=== PATIENT | male | born 1955 | race Hispanic/Latino ===

== ENCOUNTER 2017-10-30 18:53 | Emergency (ER) | payer SELFPAY ==
[2017-10-30] MEDS ORDERED: AMLODIPINE5 MG PO (19:41)
[2017-10-30 21:03] VITALS: BP 180/110
== END 2017-10-30 21:00 | disposition home or self-care (01) | DRG 950 ==
LOC: ED 18:53
DX: S01.81XD Laceration without foreign body of other part of head, subsequent encounter (principal); I16.0 Hypertensive urgency

== ENCOUNTER 2020-06-30 10:18 | Emergency (ER) | payer SELFPAY ==
[~2020-06-30] VITALS: Ht 167.6 cm; Wt 77.0 kg
[~2020-06-30 10:18] MED LIST: AMLODIPINE5 MG PO
[2020-06-30 11:27] LABS: URINE BILIRUBIN - DIPSTICK NEGATIVE (NEGATIVE); URINE BLOOD DIPSTICK TRACE-LYSED (NEGATIVE); URINE GLUCOSE - DIPSTICK NEGATIVE (NEGATIVE); URINE KETONE NEGATIVE (NEGATIVE); URINE LEUK ESTERASE NEGATIVE (NEGATIVE); URINE NITRITE - DIPSTICK NEGATIVE (Negative); URINE PH 6.5 (4.5-8.0); URINE PROTEIN - DIPSTICK NEGATIVE (NEG-TRACE)
[2020-06-30 11:30] LABS: URINE COLOR DK. YELLOW
[2020-06-30 11:31] LABS: HEMATOCRIT 32.7 % (39.0-50.0); HEMOGLOBIN 10.6 g/dl (14.0-18.0); IMMATURE GRANULOCYTES 0.5 % (0.0-5.0); MEAN CELL VOLUME 100.3 fL CALC (80.0-100.0); MEAN CORPUSCULAR HGB 32.5 pG CALC (26.0-32.0); MEAN CORPUSCULAR HGB CONC 32.4 g/dL CAL (32.0-36.0); NEUT# 1.95 thou/uL (1.82-7.42); RED BLOOD COUNT 3.26 mill/uL (4.70-6.10); RED CELL DISTRI WIDTH 17.4 % (11.5-15.5)
[2020-06-30 11:43] LABS: INTERNATIONAL NORMALIZED RATIO 1.5 RATIO (0.7-1.3); PROTHROMBIN TIME 14.9 SECONDS (9.0-12.5)
[2020-06-30 11:46] LABS: ALBUMIN 2.7 g/dL (3.2-5.0); ALKALINE PHOSPHATASE 186 u/l (38-126); ANION GAP 11 (6-22 (CALC)); BILIRUBIN, TOTAL 2.6 mg/dL (0.0-1.4); BUN 3 mg/dL (8-23); BUN/CREATININE RATIO 5 (12-20 (CALC)); CARBON DIOXIDE 22 mmol/l (22-30); CHLORIDE 108 mmol/l (95-108); CREATININE 0.6 mg/dL (0.7-1.3); GFR > 60 ML/MIN (>=60 (CALC)); GFR FOR AFR.AMER. > 60 ML/MIN (>=60 (CALC)); LIPASE 89 u/l (23-300); POTASSIUM 3.6 mmol/l (3.5-5.1); SGOT/AST 66 u/l (19-48); SODIUM 137 mmol/l (137-146)
[2020-06-30 14:40] VITALS: BP 156/82
== END 2020-06-30 14:43 | disposition home or self-care (01) | DRG 948 ==
LOC: ED 10:18
PROVIDERS: Family Medicine
PROC: 0W9G3ZZ Drainage of Peritoneal Cavity, Percutaneous Approach (ICD-10-PCS; principal; 2020-06-30)
DX: R18.8 Other ascites (principal); F10.10 Alcohol abuse, uncomplicated

== ENCOUNTER 2020-07-08 17:53 | Observation (INO) | payer SELFPAY ==
[~2020-07-08] VITALS: Ht 167.6 cm; Wt 80.0 kg
--- NOTE | 2020-07-08 18:00 | NUR ---
PT AMB TO ROOM IN NO DISTRESS
[2020-07-08 19:04] LABS: URINE BLOOD DIPSTICK TRACE-INTACT (NEGATIVE); URINE GLUCOSE - DIPSTICK NEGATIVE (NEGATIVE); URINE KETONE TRACE mg/dL (NEGATIVE); URINE LEUK ESTERASE NEGATIVE (NEGATIVE); URINE NITRITE - DIPSTICK NEGATIVE (Negative); URINE PH 6.5 (4.5-8.0); URINE PROTEIN - DIPSTICK NEGATIVE (NEG-TRACE)
[2020-07-08 19:04] LABS: HEMATOCRIT 30.1 % (39.0-50.0); HEMOGLOBIN 9.6 g/dl (14.0-18.0); IMMATURE GRANULOCYTES 0.3 % (0.0-5.0); MEAN CELL VOLUME 101.7 fL CALC (80.0-100.0); MEAN CORPUSCULAR HGB 32.4 pG CALC (26.0-32.0); MEAN CORPUSCULAR HGB CONC 31.9 g/dL CAL (32.0-36.0); NEUT# 1.6 thou/uL (1.82-7.42); RED BLOOD COUNT 2.96 mill/uL (4.70-6.10); RED CELL DISTRI WIDTH 17.2 % (11.5-15.5)
--- NOTE | 2020-07-08 19:04 | NUR ---
RECEIVED HAND OFF REPORT FROM LIN, PATIENT AWWAKE AND ALERT, NO C/O PAIN OR DISCOMFORT AT THIS TIME, RESTING QUIETLY, RESPIRATIONS EVEN AND UNLABORED, FAMILY AT BEDSIDE, AWAITING DIAGNOSTIC RESULTS.
[2020-07-08 19:05] LABS: URINE COLOR DK. YELLOW
[2020-07-08 19:06] LABS: URINE BILIRUBIN - DIPSTICK TRACE (NEGATIVE)
[2020-07-08 19:22] LABS: INTERNATIONAL NORMALIZED RATIO 1.5 RATIO (0.7-1.3); PROTHROMBIN TIME 14.8 SECONDS (9.0-12.5)
[2020-07-08 19:23] LABS: ALBUMIN 2.4 g/dL (3.2-5.0); ALKALINE PHOSPHATASE 174 u/l (38-126); AMYLASE 63 u/l (30-110); ANION GAP 7 (6-22 (CALC)); BILIRUBIN, TOTAL 2.1 mg/dL (0.0-1.4); BUN 5 mg/dL (8-23); BUN/CREATININE RATIO 8 (12-20 (CALC)); CARBON DIOXIDE 25 mmol/l (22-30); CHLORIDE 106 mmol/l (95-108); CREATININE 0.6 mg/dL (0.7-1.3); GFR > 60 ML/MIN (>=60 (CALC)); GFR FOR AFR.AMER. > 60 ML/MIN (>=60 (CALC)); LIPASE 149 u/l (23-300); POTASSIUM 3.8 mmol/l (3.5-5.1); SGOT/AST 55 u/l (19-48); SODIUM 135 mmol/l (137-146); TOTAL PROTEIN 7.3 g/dL (6.3-8.2)
--- NOTE | 2020-07-08 22:00 | NUR ---
PATIENT RESTING QUIETLY, AWAITING INPATIENT ASSIGNMENT
--- NOTE | 2020-07-08 22:23 | NUR ---
HAND OFF REPORT GIVEN TO TAMICA FOR PATIENT TO GO TO INPATIENT ICU ROOM 6.
--- NOTE | 2020-07-08 22:43 | NUR ---
PT ARRIVE TO UNIT AT 2243 VIA STRETCHER, ACCOMPANIED BY Prakash MENDOZA RN, PT AMBULATORY TO BED. ADMITTED TO ICU 6. ORIENTED TO UNIT, ROOM, CALL BARAJAS, BED/TV, AND LIGHTS. CALL BARAJAS WITHIN REACH, AGREES TO CALL PRN.
[2020-07-08 23:15] VITALS: BP 140/83
--- NOTE | 2020-07-08 23:15 | NUR ---
ADMISSION AND PHYSICAL ASSESMENT COMPLETE. PT CURRENTLY DENIES PAIN OR DISCOMFORT. FRESH ICE WATER PROVIDED. PT DENIES FURTHER NEEDS AT THIS TIME. PLAN OF CARE REVIEWED, PT DENIES QUESTIONS, VERBALIZES UNDERSTANDING. ITEMS WITHIN REACH, BED LOCKED IN LOW POSITION W/ BEDRAILS UP X2. CALL BARAJAS WITHIN REACH, AGREES TO CALL PRN.
--- NOTE | 2020-07-09 00:36 | NUR ---
PT APPEARS TO BE SLEEPING, APPEARS COMFORTABLE, NO APPARENT DISTRESS, RESPIRATIONS REGULAR AND UNLABORED. CALL BARAJAS WITHIN REACH.
--- NOTE | 2020-07-09 04:23 | NUR ---
PHYSICAL ASSESMENT COMPLETE
[2020-07-09 05:41] VITALS: BP 139/86
--- NOTE | 2020-07-09 05:42 | NUR ---
400ML PADDY URINE EMPTIED FROM URINAL. PT DENIES FURTHER NEEDS. CALL BARAJAS WITHIN REACH, AGREES TO CALL PRN.
--- NOTE | 2020-07-09 06:45 | NUR ---
REPORT RECEIVED FROM TAMICA BUSH. CARE ASSUMED AT THIS TIME
[2020-07-09 07:00] VITALS: BP 135/86
--- NOTE | 2020-07-09 07:20 | NUR ---
PT RESTING IN BED WITH EYES CLOSED. AROUSES TO VERBAL STIMULI. PT IS ALERT AND ORIENTED X3. SHIFT ASSESSMENT COMPLETED AT THIS TIME. IV PATENT X1. CALL LIGHT IN REACH. WILL CONTINUE TO MONITOR.
--- NOTE | 2020-07-09 07:34 | NUR ---
LAB AT BEDSIDE AT THIS TIME
[2020-07-09 07:46] LABS: HEMATOCRIT 30.2 % (39.0-50.0); HEMOGLOBIN 9.5 g/dl (14.0-18.0); MEAN CELL VOLUME 102.4 fL CALC (80.0-100.0); MEAN CORPUSCULAR HGB 32.2 pG CALC (26.0-32.0); MEAN CORPUSCULAR HGB CONC 31.5 g/dL CAL (32.0-36.0); NEUT# 1.17 thou/uL (1.82-7.42); RED BLOOD COUNT 2.95 mill/uL (4.70-6.10)
[2020-07-09 08:12] LABS: ALKALINE PHOSPHATASE 126 u/l (38-126); ANION GAP 5 (6-22 (CALC)); BILIRUBIN, TOTAL 2.8 mg/dL (0.0-1.4); BUN 5 mg/dL (8-23); BUN/CREATININE RATIO 9 (12-20 (CALC)); CARBON DIOXIDE 25 mmol/l (22-30); CHLORIDE 108 mmol/l (95-108); CREATININE 0.5 mg/dL (0.7-1.3); GFR > 60 ML/MIN (>=60 (CALC)); GFR FOR AFR.AMER. > 60 ML/MIN (>=60 (CALC)); POTASSIUM 3.6 mmol/l (3.5-5.1); SGOT/AST 47 u/l (19-48); SODIUM 135 mmol/l (137-146); TOTAL PROTEIN 6.3 g/dL (6.3-8.2)
--- NOTE | 2020-07-09 08:16 | NUR ---
DR ASHER AT BEDSIDE
--- NOTE | 2020-07-09 09:00 | NUR ---
PT TO RADIOLOGY FOR PARACENTECIS VIA WHEELCHAIR ACCOMAPNIED BY THIS NURSE.
--- NOTE | 2020-07-09 10:05 | NUR ---
PT RETUNRED TO ICU BED 6 VIA WHEELCHAIR. CALL LIGHT IN REACH. WILL CONTINUE TO MONITOR
--- NOTE | 2020-07-09 11:30 | NUR ---
PT SET UP FOR NOON MEAL.
[2020-07-09 12:00] VITALS: BP 142/60
[2020-07-09] MEDS ORDERED: ALDACTONE25 MG PO (12:06)
[2020-07-09] MEDS ORDERED: LASIX 20 MG TAB20 MG PO (12:06)
--- NOTE | 2020-07-09 12:55 | NUR ---
MEDICATIONS CALLED INTO [facility] FOR 1 MONTH [facility] TO APPROVE PAYMENT.
--- NOTE | 2020-07-09 13:17 | NUR ---
PT SITTING UP IN BED AWAKE. RESP ARE EVEN AND UNLABORED. NO DISTRESS NOTED. CALL LIGHT IN REACH. WILL CONTINUE TO MONITOR.
--- NOTE | 2020-07-09 13:30 | NUR ---
DISCHARGE INSTRUCTIONS PROVIDED TO PT WITH CANDY DEPARTMENT MANAGER FROM [facility] AND MEDICATION MANAGEMENT AND MD FOLLOW UP
--- NOTE | 2020-07-09 15:15 | NUR ---
DISCHARGE INSTRUCTIONS REVIEWED WITH PATIENT. PATIENT VERBALIZED UNDERSTANDING. IV DC'D PT TOLERATED WELL.
--- NOTE | 2020-07-09 15:25 | NUR ---
Discharge instructions given. Patient verbalizes understanding of same. Discharged in stable condition via Wheelchair to Home with staff. All belongings sent with pt.
== END 2020-07-09 15:25 | disposition home or self-care (01) | DRG 433 ==
LOC: ED 17:53 → ED-I 21:28 → ED 21:46 → ICU 21:47
PROVIDERS: Emergency Medicine; ADMIT Internal Medicine; ATTEND Internal Medicine
PROC: 0W9G3ZZ Drainage of Peritoneal Cavity, Percutaneous Approach (ICD-10-PCS; principal; 2020-07-09)
DX: K74.60 Unspecified cirrhosis of liver (principal); R18.8 Other ascites; N17.9 Acute kidney failure, unspecified; B15.9 Hepatitis A without hepatic coma; D64.9 Anemia, unspecified; F10.10 Alcohol abuse, uncomplicated; Z11.59 Encounter for screening for other viral diseases
CPT/HCPCS: P9047; Q9967

== ENCOUNTER 2020-12-02 10:31 | Emergency (ER) | payer SELFPAY ==
[~2020-12-02] VITALS: Ht 167.6 cm; Wt 95.5 kg
[~2020-12-02 10:31] MED LIST changes: +ALDACTONE25 MG PO; +LASIX 20 MG TAB20 MG PO
[2020-12-02] MEDS ORDERED: FERROUS SULFAT325 MG PO (10:55)
[2020-12-02 11:06] LABS: HEMATOCRIT 28.3 % (39.0-50.0); HEMOGLOBIN 9.4 g/dl (14.0-18.0); IMMATURE GRANULOCYTES 0.2 % (0.0-5.0); MEAN CORPUSCULAR HGB 34.1 pG CALC (26.0-32.0); MEAN CORPUSCULAR HGB CONC 33.2 g/dL CAL (32.0-36.0); NEUT# 2.79 thou/uL (1.82-7.42); RED BLOOD COUNT 2.76 mill/uL (4.70-6.10)
[2020-12-02 11:08] LABS: MEAN CELL VOLUME 102.5 fL CALC (80.0-100.0)
[2020-12-02 11:17] LABS: INTERNATIONAL NORMALIZED RATIO 1.5 RATIO (0.7-1.3); PROTHROMBIN TIME 14.7 SECONDS (9.0-12.5)
[2020-12-02 11:18] LABS: ALBUMIN 2.7 g/dL (3.2-5.0); ALKALINE PHOSPHATASE 131 u/l (38-126); ANION GAP 7 (6-22 (CALC)); BUN 9 mg/dL (8-23); BUN/CREATININE RATIO 14 (12-20 (CALC)); CARBON DIOXIDE 26 mmol/l (22-30); CHLORIDE 108 mmol/l (95-108); CREATININE 0.6 mg/dL (0.7-1.3); GFR > 60 ML/MIN (>=60 (CALC)); GFR FOR AFR.AMER. > 60 ML/MIN (>=60 (CALC)); POTASSIUM 3.6 mmol/l (3.5-5.1); SGOT/AST 56 u/l (19-48); SODIUM 138 mmol/l (137-146); TOTAL PROTEIN 7.3 g/dL (6.3-8.2)
[2020-12-02 11:19] LABS: BILIRUBIN, TOTAL 3.3 mg/dL (0.0-1.4)
[2020-12-02] MEDS ORDERED: LASIX 40 MG TAB40 MG PO (14:13)
[2020-12-02 14:23] VITALS: BP 140/79
== END 2020-12-02 14:37 | disposition home or self-care (01) | DRG 433 ==
LOC: ED 10:31
PROVIDERS: Family Medicine
PROC: 0W9G3ZZ Drainage of Peritoneal Cavity, Percutaneous Approach (ICD-10-PCS; principal; 2020-12-02)
DX: K74.60 Unspecified cirrhosis of liver (principal); R18.8 Other ascites
CPT/HCPCS: P9047

== ENCOUNTER 2020-12-09 10:15 | Emergency (ER) | payer SELFPAY ==
[~2020-12-09] VITALS: Ht 165.1 cm; Wt 96.0 kg
[~2020-12-09 10:15] MED LIST changes: +FERROUS SULFAT325 MG PO; +LASIX 40 MG TAB40 MG PO
[2020-12-09 12:16] LABS: HEMATOCRIT 32.4 % (39.0-50.0); HEMOGLOBIN 10.6 g/dl (14.0-18.0); IMMATURE GRANULOCYTES 0.3 % (0.0-5.0); MEAN CELL VOLUME 102.5 fL CALC (80.0-100.0); MEAN CORPUSCULAR HGB 33.5 pG CALC (26.0-32.0); MEAN CORPUSCULAR HGB CONC 32.7 g/dL CAL (32.0-36.0); NEUT# 2.29 thou/uL (1.82-7.42); RED BLOOD COUNT 3.16 mill/uL (4.70-6.10); RED CELL DISTRI WIDTH 16.3 % (11.5-15.5)
[2020-12-09 12:35] LABS: ALBUMIN 2.9 g/dL (3.2-5.0); ALKALINE PHOSPHATASE 126 u/l (38-126); ANION GAP 7 (6-22 (CALC)); BILIRUBIN, TOTAL 3.3 mg/dL (0.0-1.4); BUN 11 mg/dL (8-23); BUN/CREATININE RATIO 16 (12-20 (CALC)); CARBON DIOXIDE 28 mmol/l (22-30); CHLORIDE 106 mmol/l (95-108); CREATININE 0.7 mg/dL (0.7-1.3); GFR > 60 ML/MIN (>=60 (CALC)); GFR FOR AFR.AMER. > 60 ML/MIN (>=60 (CALC)); POTASSIUM 3.9 mmol/l (3.5-5.1); SGOT/AST 48 u/l (19-48); SODIUM 137 mmol/l (137-146); TOTAL PROTEIN 7.5 g/dL (6.3-8.2)
[2020-12-09 12:55] LABS: INTERNATIONAL NORMALIZED RATIO 1.4 RATIO (0.7-1.3); PROTHROMBIN TIME 13.8 SECONDS (9.0-12.5)
[2020-12-09 16:18] VITALS: BP 139/96
== END 2020-12-09 16:30 | disposition home or self-care (01) | DRG 434 ==
LOC: ED 10:15
PROC: 0W9G3ZZ Drainage of Peritoneal Cavity, Percutaneous Approach (ICD-10-PCS; principal; 2020-12-09)
DX: K70.31 Alcoholic cirrhosis of liver with ascites (principal)
CPT/HCPCS: P9047

== ENCOUNTER 2020-12-24 10:37 | Emergency (ER) | payer SELFPAY ==
[~2020-12-24] VITALS: Ht 167.6 cm; Wt 79.5 kg
[2020-12-24 11:41] LABS: HEMATOCRIT 30.9 % (39.0-50.0); HEMOGLOBIN 10.2 g/dl (14.0-18.0); MEAN CELL VOLUME 101.6 fL CALC (80.0-100.0); MEAN CORPUSCULAR HGB 33.6 pG CALC (26.0-32.0); NEUT# 1.55 thou/uL (1.82-7.42); RED BLOOD COUNT 3.04 mill/uL (4.70-6.10); RED CELL DISTRI WIDTH 15.6 % (11.5-15.5)
[2020-12-24 11:56] LABS: ALBUMIN 2.5 g/dL (3.2-5.0); ALKALINE PHOSPHATASE 132 u/l (38-126); ANION GAP 7 (6-22 (CALC)); BILIRUBIN, TOTAL 2.2 mg/dL (0.0-1.4); BUN 10 mg/dL (8-23); BUN/CREATININE RATIO 14 (12-20 (CALC)); CARBON DIOXIDE 30 mmol/l (22-30); CHLORIDE 106 mmol/l (95-108); CREATININE 0.7 mg/dL (0.7-1.3); GFR > 60 ML/MIN (>=60 (CALC)); GFR FOR AFR.AMER. > 60 ML/MIN (>=60 (CALC)); INTERNATIONAL NORMALIZED RATIO 1.5 RATIO (0.7-1.3); POTASSIUM 3.8 mmol/l (3.5-5.1); PROTHROMBIN TIME 14.6 SECONDS (9.0-12.5); SGOT/AST 36 u/l (19-48); SODIUM 139 mmol/l (137-146); TOTAL PROTEIN 6.8 g/dL (6.3-8.2)
[2020-12-24] MEDS ORDERED: LASIX 20 MG TAB20 MG PO (16:15)
[2020-12-24 16:50] VITALS: BP 132/75
== END 2020-12-24 17:09 | disposition home or self-care (01) | DRG 434 ==
LOC: ED 10:37
PROVIDERS: Family Medicine
PROC: 0W9G3ZZ Drainage of Peritoneal Cavity, Percutaneous Approach (ICD-10-PCS; principal; 2020-12-24)
DX: K70.31 Alcoholic cirrhosis of liver with ascites (principal); F10.10 Alcohol abuse, uncomplicated
CPT/HCPCS: P9047

== ENCOUNTER 2021-01-19 08:56 | Emergency (ER) | payer SELFPAY ==
[~2021-01-19] VITALS: Ht 167.6 cm; Wt 109.0 kg
[2021-01-19 10:38] LABS: HEMATOCRIT 34.2 % (39.0-50.0); HEMOGLOBIN 11.2 g/dl (14.0-18.0); MEAN CELL VOLUME 100.9 fL CALC (80.0-100.0); MEAN CORPUSCULAR HGB CONC 32.7 g/dL CAL (32.0-36.0); NEUT# 1.73 thou/uL (1.82-7.42); RED BLOOD COUNT 3.39 mill/uL (4.70-6.10); RED CELL DISTRI WIDTH 14.7 % (11.5-15.5)
[2021-01-19 10:52] LABS: ALBUMIN 2.7 g/dL (3.2-5.0); ALKALINE PHOSPHATASE 108 u/l (38-126); ANION GAP 9 (6-22 (CALC)); BILIRUBIN, TOTAL 2.2 mg/dL (0.0-1.4); BUN 8 mg/dL (8-23); BUN/CREATININE RATIO 12 (12-20 (CALC)); CARBON DIOXIDE 26 mmol/l (22-30); CHLORIDE 107 mmol/l (95-108); CREATININE 0.7 mg/dL (0.7-1.3); GFR > 60 ML/MIN (>=60 (CALC)); GFR FOR AFR.AMER. > 60 ML/MIN (>=60 (CALC)); POTASSIUM 3.9 mmol/l (3.5-5.1); SGOT/AST 28 u/l (19-48); SODIUM 137 mmol/l (137-146); TOTAL PROTEIN 7.3 g/dL (6.3-8.2)
[2021-01-19 10:59] LABS: INTERNATIONAL NORMALIZED RATIO 1.5 RATIO (0.7-1.3); PROTHROMBIN TIME 15.3 SECONDS (9.0-12.5)
[2021-01-19 11:04] LABS: MYOGLOBIN 31 ng/mL (0 - 121)
[2021-01-19 13:50] VITALS: BP 137/84
[2021-01-19] MEDS ORDERED: LASIX20 MG PO (14:23)
== END 2021-01-19 14:27 | disposition home or self-care (01) | DRG 434 ==
LOC: ED 08:56
PROVIDERS: Emergency Medicine
PROC: 0W9G3ZZ Drainage of Peritoneal Cavity, Percutaneous Approach (ICD-10-PCS; principal; 2021-01-19)
DX: K70.31 Alcoholic cirrhosis of liver with ascites (principal)
CPT/HCPCS: P9047

== ENCOUNTER 2021-02-03 09:26 | Emergency (ER) | payer SELFPAY ==
[~2021-02-03] VITALS: Ht 167.6 cm; Wt 99.6 kg
[~2021-02-03 09:26] MED LIST changes: +LASIX20 MG PO
[2021-02-03 10:27] LABS: HEMATOCRIT 32.6 % (39.0-50.0); HEMOGLOBIN 10.9 g/dl (14.0-18.0); MEAN CELL VOLUME 99.1 fL CALC (80.0-100.0); MEAN CORPUSCULAR HGB 33.1 pG CALC (26.0-32.0); MEAN CORPUSCULAR HGB CONC 33.4 g/dL CAL (32.0-36.0); NEUT# 1.45 thou/uL (1.82-7.42); RED BLOOD COUNT 3.29 mill/uL (4.70-6.10); RED CELL DISTRI WIDTH 15.3 % (11.5-15.5)
[2021-02-03 10:52] LABS: ACT PARTIAL THROMBO TIME 36.8 SECONDS (20.0-32.5); INTERNATIONAL NORMALIZED RATIO 1.5 RATIO (0.7-1.3); PROTHROMBIN TIME 15.2 SECONDS (9.0-12.5)
[2021-02-03 11:11] LABS: ALBUMIN 2.6 g/dL (3.2-5.0); ALKALINE PHOSPHATASE 126 u/l (38-126); ANION GAP 8 (6-22 (CALC)); BILIRUBIN, TOTAL 2.4 mg/dL (0.0-1.4); BUN 7 mg/dL (8-23); BUN/CREATININE RATIO 10 (12-20 (CALC)); CARBON DIOXIDE 27 mmol/l (22-30); CHLORIDE 105 mmol/l (95-108); CREATININE 0.7 mg/dL (0.7-1.3); GFR > 60 ML/MIN (>=60 (CALC)); GFR FOR AFR.AMER. > 60 ML/MIN (>=60 (CALC)); LIPASE 89 u/l (23-300); POTASSIUM 3.7 mmol/l (3.5-5.1); SGOT/AST 31 u/l (19-48); SODIUM 136 mmol/l (137-146); TOTAL PROTEIN 7.1 g/dL (6.3-8.2)
[2021-02-03 11:25] LABS: ETHYL ALCOHOL < 10 mg/dl (0-30)
[2021-02-03] MEDS ORDERED: K-DUR/KLOR-CON20 MEQ PO (12:29)
[2021-02-03] MEDS ORDERED: LASIX20 MG PO (12:29)
[2021-02-03 12:52] VITALS: BP 132/66
== END 2021-02-03 13:09 | disposition home or self-care (01) | DRG 434 ==
LOC: ED 09:26
PROC: 0W9G3ZZ Drainage of Peritoneal Cavity, Percutaneous Approach (ICD-10-PCS; principal; 2021-02-03)
DX: K70.31 Alcoholic cirrhosis of liver with ascites (principal)
CPT/HCPCS: P9047

== ENCOUNTER 2021-02-18 | Emergency (ER) | payer SELFPAY ==
[~2021-02-18] MED LIST changes: +K-DUR/KLOR-CON20 MEQ PO
[2021-02-18 10:17] LABS: HEMOGLOBIN 10.8 g/dl (14.0-18.0); MEAN CELL VOLUME 99.1 fL CALC (80.0-100.0); MEAN CORPUSCULAR HGB 32.4 pG CALC (26.0-32.0); MEAN CORPUSCULAR HGB CONC 32.7 g/dL CAL (32.0-36.0); NEUT# 1.39 thou/uL (1.82-7.42); RED BLOOD COUNT 3.33 mill/uL (4.70-6.10); RED CELL DISTRI WIDTH 15.5 % (11.5-15.5)
[2021-02-18 10:35] LABS: INTERNATIONAL NORMALIZED RATIO 1.5 RATIO (0.7-1.3)
[2021-02-18 10:47] LABS: ALBUMIN 2.6 g/dL (3.2-5.0); ALKALINE PHOSPHATASE 132 u/l (38-126); AMYLASE 72 u/l (30-110); ANION GAP 8 (6-22 (CALC)); BILIRUBIN, TOTAL 2.2 mg/dL (0.0-1.4); BUN 7 mg/dL (8-23); BUN/CREATININE RATIO 10 (12-20 (CALC)); CARBON DIOXIDE 24 mmol/l (22-30); CHLORIDE 109 mmol/l (95-108); CREATININE 0.7 mg/dL (0.7-1.3); GFR > 60 ML/MIN (>=60 (CALC)); GFR FOR AFR.AMER. > 60 ML/MIN (>=60 (CALC)); LIPASE 91 u/l (23-300); POTASSIUM 3.9 mmol/l (3.5-5.1); SGOT/AST 32 u/l (19-48); SODIUM 137 mmol/l (137-146); TOTAL PROTEIN 7.1 g/dL (6.3-8.2)
== END 2021-02-18 15:00 | disposition short-term general hospital (02) | DRG 433 ==
PROVIDERS: Emergency Medicine
DX: K74.60 Unspecified cirrhosis of liver (principal); R18.8 Other ascites
CPT/HCPCS: Q9967

== ENCOUNTER 2021-03-13 10:02 | Emergency (ER) | payer SELFPAY ==
[2021-03-13 11:42] VITALS: BP 152/65
== END 2021-03-13 11:42 | disposition home or self-care (01) | DRG 948 ==
LOC: ED 10:02
DX: R18.8 Other ascites (principal)

== ENCOUNTER 2021-03-15 07:44 | Emergency (ER) | payer SELFPAY ==
[2021-03-15 08:49] LABS: GFR > 60 ML/MIN (>=60 (CALC)); GFR FOR AFR.AMER. > 60 ML/MIN (>=60 (CALC)); HEMATOCRIT 31.2 % (39.0-50.0); HEMOGLOBIN 10.2 g/dl (14.0-18.0); MEAN CELL VOLUME 97.5 fL CALC (80.0-100.0); MEAN CORPUSCULAR HGB 31.9 pG CALC (26.0-32.0); MEAN CORPUSCULAR HGB CONC 32.7 g/dL CAL (32.0-36.0); NEUT# 1.13 thou/uL (1.82-7.42); RED BLOOD COUNT 3.2 mill/uL (4.70-6.10); RED CELL DISTRI WIDTH 16.1 % (11.5-15.5)
[2021-03-15 09:17] LABS: ALBUMIN 2.3 g/dL (3.2-5.0); ALKALINE PHOSPHATASE 107 u/l (38-126); ANION GAP 5 (6-22 (CALC)); BILIRUBIN, TOTAL 1.8 mg/dL (0.0-1.4); BUN 7 mg/dL (8-23); BUN/CREATININE RATIO 10 (12-20 (CALC)); CARBON DIOXIDE 26 mmol/l (22-30); CHLORIDE 108 mmol/l (95-108); CREATININE 0.7 mg/dL (0.7-1.3); GFR > 60 ML/MIN (>=60 (CALC)); GFR FOR AFR.AMER. > 60 ML/MIN (>=60 (CALC)); LIPASE 100 u/l (23-300); POTASSIUM 3.7 mmol/l (3.5-5.1); SGOT/AST 28 u/l (19-48); SODIUM 136 mmol/l (137-146); TOTAL PROTEIN 6.5 g/dL (6.3-8.2)
[2021-03-15 09:18] LABS: INTERNATIONAL NORMALIZED RATIO 1.5 RATIO (0.7-1.3); PROTHROMBIN TIME 15.4 SECONDS (9.0-12.5)
[2021-03-15 12:34] VITALS: BP 160/100
== END 2021-03-15 12:35 | disposition home or self-care (01) | DRG 434 ==
LOC: ED 07:44
PROVIDERS: Family Medicine
PROC: 0W9G3ZZ Drainage of Peritoneal Cavity, Percutaneous Approach (ICD-10-PCS; principal; 2021-03-15)
DX: K70.31 Alcoholic cirrhosis of liver with ascites (principal); K70.40 Alcoholic hepatic failure without coma; F10.10 Alcohol abuse, uncomplicated; Z20.822 Contact with and (suspected) exposure to COVID-19
CPT/HCPCS: P9047; Q9967

== ENCOUNTER 2021-04-08 08:37 | Emergency (ER) | payer SELFPAY ==
[~2021-04-08] VITALS: Ht 167.6 cm; Wt 95.0 kg
[2021-04-08 09:26] LABS: HEMATOCRIT 33.1 % (39.0-50.0); HEMOGLOBIN 10.8 g/dl (14.0-18.0); MEAN CELL VOLUME 99.1 fL CALC (80.0-100.0); MEAN CORPUSCULAR HGB 32.3 pG CALC (26.0-32.0); MEAN CORPUSCULAR HGB CONC 32.6 g/dL CAL (32.0-36.0); NEUT# 1.61 thou/uL (1.82-7.42); RED BLOOD COUNT 3.34 mill/uL (4.70-6.10); RED CELL DISTRI WIDTH 16.2 % (11.5-15.5)
[2021-04-08 09:51] LABS: ALBUMIN 2.5 g/dL (3.2-5.0); ALKALINE PHOSPHATASE 126 u/l (38-126); ANION GAP 7 (6-22 (CALC)); BILIRUBIN, TOTAL 2.2 mg/dL (0.0-1.4); BUN 10 mg/dL (8-23); BUN/CREATININE RATIO 16 (12-20 (CALC)); CARBON DIOXIDE 25 mmol/l (22-30); CHLORIDE 109 mmol/l (95-108); CREATININE 0.6 mg/dL (0.7-1.3); GFR > 60 ML/MIN (>=60 (CALC)); GFR FOR AFR.AMER. > 60 ML/MIN (>=60 (CALC)); POTASSIUM 4.1 mmol/l (3.5-5.1); SGOT/AST 35 u/l (19-48); SODIUM 137 mmol/l (137-146); TOTAL PROTEIN 6.9 g/dL (6.3-8.2)
[2021-04-08 12:29] LABS: INTERNATIONAL NORMALIZED RATIO 1.4 RATIO (0.7-1.3); PROTHROMBIN TIME 14.8 SECONDS (9.0-12.5)
[2021-04-08 14:45] VITALS: BP 130/78
== END 2021-04-08 14:48 | disposition home or self-care (01) | DRG 433 ==
LOC: ED 08:37
PROVIDERS: Emergency Medicine; Nurse Practitioner Adult Health
PROC: 0W9G3ZZ Drainage of Peritoneal Cavity, Percutaneous Approach (ICD-10-PCS; principal; 2021-04-08)
DX: K74.60 Unspecified cirrhosis of liver (principal); R18.8 Other ascites; Z20.822 Contact with and (suspected) exposure to COVID-19
CPT/HCPCS: P9047

== ENCOUNTER 2024-12-26 17:51 | Inpatient (IN) | payer MEDICARE ==
[~2024-12-26] VITALS: Ht 167.6 cm; Wt 80.2 kg
[2024-12-26 18:41] LABS: URINE BILIRUBIN - DIPSTICK Negative (NEGATIVE); URINE BLOOD DIPSTICK Trace-lysed (NEGATIVE); URINE GLUCOSE - DIPSTICK 500 mg/dL (NEGATIVE); URINE KETONE 15 mg/dL (NEGATIVE); URINE LEUK ESTERASE Negative (NEGATIVE); URINE NITRITE - DIPSTICK Negative (Negative); URINE PROTEIN - DIPSTICK Negative (NEG-TRACE); URINE SPECIFIC GRAVITY <=1.005; URINE UROBILINOGEN - DIPSTICK 0.2 E.U./dL (0.2)
[2024-12-26 18:42] LABS: EOS% 1.3 % (0-8); HEMATOCRIT 39.9 % (39.0-50.0); HEMOGLOBIN 13.7 g/dl (14.0-18.0); IMMATURE GRANULOCYTES 0.4 % (0.0-5.0); LYMPH% 12.2 % (15-41); MEAN CELL VOLUME 90.9 fL CALC (80.0-100.0); MEAN CORPUSCULAR HGB 31.2 pG CALC (26.0-32.0); MEAN CORPUSCULAR HGB CONC 34.3 g/dL CAL (32.0-36.0); MONO% 6.1 % (2-13); NEUT# 6.67 thou/uL (1.82-7.42); RED BLOOD COUNT 4.39 mill/uL (4.70-6.10); RED CELL DISTRI WIDTH 15.3 % (11.5-15.5); URINE COLOR Yellow
[2024-12-26] MEDS ORDERED: SODIUM CHLORIDE 0.9% 1,000 ML IV ONE ×2 (18:50→19:55)
[2024-12-26 18:57] LABS: ALBUMIN 2.8 g/dL (3.2-5.0); CREATININE 1.1 mg/dL (0.7-1.3); TOTAL PROTEIN 5.6 g/dL (6.3-8.2)
--- NOTE | 2024-12-26 19:00 | NUR ---
REPORT RECEIVED FROM Arpit Jorge RN
[2024-12-26 19:09] LABS: BILIRUBIN, TOTAL 1.3 mg/dL (0.2-1.3); POTASSIUM 5.3 mmol/l (3.5-5.1)
[2024-12-26] MEDS ORDERED: INSULIN REGULAR (HUMAN) 100 UNIT/ML INJ IV ONE (19:15)
[2024-12-26] MEDS ORDERED: LACTATED RINGER'S 1,000 ML IV PRN (20:25)
[2024-12-26] MEDS ORDERED: ONDANSETRON HCl 4 MG/2 ML SDV IV PRN (20:25)
[2024-12-26] MEDS ORDERED: ACETAMINOPHEN 325 MG/TAB PO PRN (20:25)
--- NOTE | 2024-12-26 20:53 | NUR ---
ATTEMPTED TO CALL REPORT, STATES NURSE IS IN A RM AND WILL CALL BACK.
[2024-12-26] MEDS ORDERED: ENOXAPARIN SODIUM 40 MG/0.4 ML SYR SC SCH (21:00)
[2024-12-26] MEDS ORDERED: INSULIN LISPRO 100 UNITS/ML ML SC SCH (21:00)
--- NOTE | 2024-12-26 21:05 | NUR ---
REPORT CALLED TO RACHELLE AUGUST.
--- NOTE | 2024-12-26 21:10 | NUR ---
PATIENT TRASNPORTED TO MED SURG.
--- NOTE | 2024-12-26 21:20 | NUR ---
PT ARRIVED TO [facility] VIA WHEELCHAIR NO DISTRESS NOTED ON EXAM. PT ABLE TO AMBULATE INDEPENDENTLY WITHOUT ANY ISSUES USING HIS CANE. CALL LIGHT WITHIN REACH. PT STATED UNDERSTANDING ON HOW TO USE IT.
--- NOTE | 2024-12-26 21:31 | NUR ---
Checked patient Glucose and it read HI nurse was notified.
--- NOTE | 2024-12-26 22:30 | NUR ---
ASSESSMENT DONE. IV FLUIDS STARTED. PT REPORTS NO PAIN AT THIS TIME. LAURA HOSE IN PLACE. SKIN INTACT WITH SCATTERED BRUISING ON BUE. LUNGS CLEAR ON RA. PT GLUCOSE LEVEL HIGH SINCE THE ER WAITING ON LAB RESULT.
[2024-12-26 22:38] LABS: CREATININE 0.9 mg/dL (0.7-1.3); POTASSIUM 4.5 mmol/l (3.5-5.1); TOTAL PROTEIN 4.6 g/dL (6.3-8.2)
--- NOTE | 2024-12-26 22:43 | NUR ---
PT'S LACTIC ACID WAS 3.0 WHEN HE ARRIVED TO [facility] RECHECKED IS 2.2.
[2024-12-26 22:47] LABS: ALBUMIN 2.2 g/dL (3.2-5.0)
--- NOTE | 2024-12-26 23:19 | NUR ---
NURSE INFORM INCIDENT COORDINATOR MD OF PT'S BG 623 AND LACTIC ACID AT 2.2 DOWN FROM 3.0. NURSE HAD PREVIOUSLY GIVEN 14 UNITS OF REG INSULIN PER SLIDING SCALE. PROVIDER GAVE VERBAL ORDER FOR A ONE TIME ORDER OF 10 UNITS OF LANTUS SC.
[2024-12-26] MEDS ORDERED: INSULIN GLARGINE 100 UNITS/ML SC SCH (23:45)
[2024-12-27 03:50] VITALS: BP 125/68
--- NOTE | 2024-12-27 04:00 | NUR ---
PT SLEEPING EASILY AROUSABLE NO DISTRESS NOTED ON EXAM. CALL LIGHT WITHIN REACH. IV FLUID INFUSION ONGOING. PLAN OF CARE ONGOING.
[2024-12-27 05:35] LABS: EOS% 1.8 % (0-8); IMMATURE GRANULOCYTES 0.3 % (0.0-5.0); LYMPH% 19.7 % (15-41); MEAN CELL VOLUME 90.3 fL CALC (80.0-100.0); MEAN CORPUSCULAR HGB 31.8 pG CALC (26.0-32.0); MEAN CORPUSCULAR HGB CONC 35.2 g/dL CAL (32.0-36.0); MONO% 8.4 % (2-13); NEUT# 2.34 thou/uL (1.82-7.42); NEUT% 69.8 % (42-76); RED BLOOD COUNT 3.52 mill/uL (4.70-6.10); RED CELL DISTRI WIDTH 15.3 % (11.5-15.5)
[2024-12-27 05:50] LABS: BILIRUBIN, TOTAL 0.8 mg/dL (0.2-1.3); CREATININE 0.6 mg/dL (0.7-1.3); MAGNESIUM 1.7 mg/dL (1.6-2.3); POTASSIUM 3.9 mmol/l (3.5-5.1); TOTAL PROTEIN 4.4 g/dL (6.3-8.2)
[2024-12-27 06:04] LABS: HEMATOCRIT 31.8 % (39.0-50.0); HEMOGLOBIN 11.2 g/dl (14.0-18.0)
[2024-12-27 07:15] VITALS: BP 121/67
--- NOTE | 2024-12-27 08:00 | NUR ---
PATIENT LYING IN BED. ASSESSMENT COMPLETED. #20 RAC LR @100. SITE APPEARS HEALTHY. PT DENIES ANY PAIN OR NEEDS. CALL LIGHT IN REACH.
[2024-12-27] MEDS ORDERED: INSULIN GLARGINE 100 UNITS/ML SC SCH (09:00)
--- NOTE | 2024-12-27 12:00 | NUR ---
PATIENT WATCHING TELEVISION. DENIES ANY PAIN OR NEEDS. CALL LIGHT IN REACH.
--- NOTE | 2024-12-27 16:00 | NUR ---
PATIENT WATCHING TELEVISION. DENIES ANY NEEDS. CALL LIGHT IN REACH.
[2024-12-27] MEDS ORDERED: INSULIN LISPRO 100 UNITS/ML ML SC SCH (17:00)
[2024-12-27 19:13] VITALS: BP 109/69
--- NOTE | 2024-12-27 20:30 | NUR ---
PT RESTING NO DISTRESS NOTED ON EXAM. IV FLUSHED WORKING PROPERLY SL. NURSE EDUCATED PT ON S&S OF HYPERGLYCEMIA/HYPOGLYCEMIA. NURSE HAD PT GIVE HIMSELF HIS NIGHT TIME INSULINE PROPERLY. CALL LIGHT WITHIN REACH. PLAN OF CARE ONGOING.
--- NOTE | 2024-12-28 00:11 | NUR ---
PT SLEEPING NO DISTRESS NOTED ON EXAM. CALL LIGHT WITHIN REACH. PLAN OF CARE ONGOING.
[2024-12-28 04:17] VITALS: BP 138/89
--- NOTE | 2024-12-28 04:49 | NUR ---
PT SLEEPING EASILY AROUSABLE NO DISTRESS NOTED ON EXAM. CALL LIGHT WITHIN REACH. PLAN OF CARE ONGOING.
[2024-12-28 05:43] LABS: BASO% 0.2 % (0-3); EOS% 3.4 % (0-8); HEMATOCRIT 36.9 % (39.0-50.0); HEMOGLOBIN 12.5 g/dl (14.0-18.0); IMMATURE GRANULOCYTES 0.4 % (0.0-5.0); LYMPH% 21.7 % (15-41); MEAN CELL VOLUME 94.9 fL CALC (80.0-100.0); MEAN CORPUSCULAR HGB 32.1 pG CALC (26.0-32.0); MEAN CORPUSCULAR HGB CONC 33.9 g/dL CAL (32.0-36.0); MONO% 8.8 % (2-13); NEUT# 3.29 thou/uL (1.82-7.42); NEUT% 65.5 % (42-76); RED BLOOD COUNT 3.89 mill/uL (4.70-6.10)
[2024-12-28 05:48] LABS: ALBUMIN 2.2 g/dL (3.2-5.0); BILIRUBIN, TOTAL 0.9 mg/dL (0.2-1.3); CHOLESTEROL HDL RATIO 3.3 (<4.4 (CALC)); CREATININE 0.5 mg/dL (0.7-1.3); MAGNESIUM 1.6 mg/dL (1.6-2.3); POTASSIUM 3.7 mmol/l (3.5-5.1); TOTAL PROTEIN 4.9 g/dL (6.3-8.2)
[2024-12-28 07:23] VITALS: BP 116/74
[2024-12-28] MEDS ORDERED: INSULIN GLARGINE 100 UNITS/ML SC SCH (09:00)
[2024-12-28 10:57] VITALS: BP 130/85
[2024-12-28] MEDS ORDERED: [UNRECOGNIZED DRUG - CODE] TOP (11:10)
[2024-12-28] MEDS ORDERED: INSULIN SY0.5 MG/35 SC (11:10)
[2024-12-28] MEDS ORDERED: LANTUS100 UNIT SC (11:22)
[2024-12-28] MEDS ORDERED: ATORVASTATIN CA20 MG PO (11:23)
== END 2024-12-28 14:52 | disposition home or self-care (01) | DRG 639 ==
LOC: ED 17:51 → ED-I 19:58 → ED 20:10 → MS2 20:11
PROVIDERS: Nurse Practitioner; Nurse Practitioner Family; ADMIT Internal Medicine; ATTEND Internal Medicine
DX: E11.65 Type 2 diabetes mellitus with hyperglycemia (principal); E05.90 Thyrotoxicosis, unspecified without thyrotoxic crisis or storm; K70.30 Alcoholic cirrhosis of liver without ascites; F10.90 Alcohol use, unspecified, uncomplicated
CPT/HCPCS: J1650; J1815

== ENCOUNTER 2025-01-01 09:05 | Emergency (ER) | payer MEDICARE ==
[~2025-01-01] VITALS: Ht 167.6 cm; Wt 81.6 kg
[2025-01-01] VITALS (13 sets, daily range): BP systolic 111–164; BP diastolic 73–108
[~2025-01-01 09:05] MED LIST changes: +ATORVASTATIN CA20 MG PO; +INSULIN SY0.5 MG/35 SC; +LANTUS100 UNIT SC; +[UNRECOGNIZED DRUG - CODE] TOP
[2025-01-01] MEDS ORDERED: AMOXICILLIN & POT CLAVULANATE 875 MG/TAB PO ONE (09:30)
[2025-01-01] MEDS ORDERED: FLUCONAZOLE 150 MG/TAB PO ONE (09:30)
[2025-01-01 09:59] LABS: BASO% 0.5 % (0-3); EOS% 2.5 % (0-8); HEMATOCRIT 33.4 % (39.0-50.0); HEMOGLOBIN 11.5 g/dl (14.0-18.0); MEAN CORPUSCULAR HGB 31.7 pG CALC (26.0-32.0); MEAN CORPUSCULAR HGB CONC 34.4 g/dL CAL (32.0-36.0); MONO% 6.4 % (2-13); NEUT# 3.05 thou/uL (1.82-7.42); NEUT% 69.6 % (42-76); RED BLOOD COUNT 3.63 mill/uL (4.70-6.10); RED CELL DISTRI WIDTH 16.9 % (11.5-15.5)
[2025-01-01 10:09] LABS: ALBUMIN 2.5 g/dL (3.2-5.0); CREATININE 0.5 mg/dL (0.7-1.3); POTASSIUM 3.6 mmol/l (3.5-5.1); TOTAL PROTEIN 5.3 g/dL (6.3-8.2)
[2025-01-01 10:12] LABS: BILIRUBIN, TOTAL 1.7 mg/dL (0.2-1.3)
[2025-01-01] MEDS ORDERED: INSULIN REGULAR (HUMAN) 100 UNIT/ML INJ SC ONE (10:30)
[2025-01-01 12:21] LABS: URINE BILIRUBIN - DIPSTICK Negative (NEGATIVE); URINE BLOOD DIPSTICK Moderate (NEGATIVE); URINE GLUCOSE - DIPSTICK >=1000 mg/dL (NEGATIVE); URINE KETONE 40 mg/dL (NEGATIVE); URINE LEUK ESTERASE Trace (NEGATIVE); URINE NITRITE - DIPSTICK Negative (Negative); URINE PROTEIN - DIPSTICK Negative (NEG-TRACE); URINE SPECIFIC GRAVITY 1.015; URINE UROBILINOGEN - DIPSTICK 0.2 E.U./dL (0.2)
[2025-01-01 12:22] LABS: URINE COLOR Yellow; URINE RBC 25-50 RBC/hpf (0-5); URINE WBC 20-50 WBC/hpf (0-5)
[2025-01-01 12:23] LABS: URINE BACTERIA MANY hpf; URINE EPITHELIAL CELLS MANY EPI/hpf (0-FEW)
[2025-01-01] MEDS ORDERED: CIPROFLOXACN500 MG PO (13:08)
[2025-01-01] MEDS ORDERED: DIFLUCAN150 MG PO (13:08)
[2025-01-01] MEDS ORDERED: METRONIDAZOLE500 MG PO (13:13)
== END 2025-01-01 13:58 | disposition home or self-care (01) ==
LOC: ED 09:05
PROVIDERS: Emergency Medicine
DX: N48.1 Balanitis (principal); N39.0 Urinary tract infection, site not specified; R73.9 Hyperglycemia, unspecified; R60.0 Localized edema